=== PATIENT | male | born 1965 | race African-American/Black ===

== ENCOUNTER 2022-09-29 16:30 | Emergency (ER) | payer OTHER ==
[2022-09-29] MEDS ORDERED: HYDROCODONE/APAP 10/325 TAB ONE (17:26)
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
--- NOTE | 2022-09-29 17:48 | RAD REPORT ---
EXAM DESCRIPTION: RAD - Knee Left 3 View - 09/29/2022 5:38 pm CLINICAL HISTORY: Left knee pain FINDINGS: No fracture or dislocation is seen. Moderate osteoarthritis patellofemoral compartment.
--- NOTE | 2022-09-29 17:49 | RAD REPORT ---
EXAM DESCRIPTION: RAD - Foot Right 3 View - 09/29/2022 5:38 pm CLINICAL HISTORY: Right foot pain status post injury FINDINGS: No fracture or dislocation is seen
[2022-09-29 17:52] LABS: Absolute Lymphocytes (CBC) 2.3 K/uL (0.7-4.9); Hematocrit 41.6 % (39.6-49.0); Lymphocytes % 28.8 % (15.3-44.8); MCV 83.5 fL (80-100); RBC Red Blood Cell Count 4.99 M/uL (4.33-5.43)
[2022-09-29 18:12] LABS: Bilirubin Total 0.3 mg/dL (0.2-1.0); Protein, Total 7.9 g/dL (6.4-8.2)
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
[2022-09-29 19:58] VITALS: TEMP 98.7
[2022-09-29 20:00] VITALS: O2SAT 100
[2022-09-29 20:01] VITALS: BP 137/96
== END 2022-09-29 18:56 | disposition home or self-care (01) ==
LOC: ER 16:30
DX: S09.90XA Unspecified injury of head, initial encounter (principal); S20.212A Contusion of left front wall of thorax, initial encounter; S80.02XA Contusion of left knee, initial encounter; S80.01XA Contusion of right knee, initial encounter; S90.112A Contusion of left great toe without damage to nail, initial encounter; V49.50XA Passenger injured in collision with unspecified motor vehicles in traffic accident, initial encounter; Z79.01 Long term (current) use of anticoagulants
CPT/HCPCS: 36415; 70450; 71250; 72125; 80053; 85025; 99284